=== PATIENT | female | born 1970 | race Caucasian/White ===

== ENCOUNTER → 2017-04-19 | Outpatient (CLI) | payer OTHER, SELFPAY ==
[2017-04-19 17:50] LABS: ALBUMIN 3.4 GM/DL (3.2-5.2); ALBUMIN/GLOBULIN RATIO 1.03 (1.00-1.93); ALKALINE PHOSPHATASE 101 U/L (45-117); ALT/SGPT 31 U/L (12-78); ANION GAP 8 MEQ/L (8-16); AST/SGOT 27 U/L (15-37); BILIRUBIN,TOTAL 0.6 MG/DL (0.2-1.0); BLOOD UREA NITROGEN 9 MG/DL (7-18); CALCIUM LEVEL 8.9 MG/DL (8.5-10.1); CARBON DIOXIDE LEVEL 37 MEQ/L (21-32); CHLORIDE LEVEL 96 MEQ/L (98-107); CREATININE FOR GFR 0.84 MG/DL (0.55-1.02); GLOMERULAR FILTRATION RATE > 60.0 (>58); GLUCOSE, FASTING 133 MG/DL (70-105); POTASSIUM SERUM 2.7 MEQ/L (3.5-5.1); SODIUM LEVEL 141 MEQ/L (136-145); TOTAL PROTEIN 6.7 GM/DL (6.4-8.2)
== END ==
LOC: M LAB 16:13
PROVIDERS: ATTEND Internal Medicine Hematology & Oncology
DX: C50.211 Malignant neoplasm of upper-inner quadrant of right female breast (principal)

== ENCOUNTER 2017-08-01 14:15 | Emergency (ER) | payer OTHER ==
[~2017-08-01] VITALS: Ht 170.2 cm; Wt 94.5 kg
[2017-08-01] MEDS ORDERED: LETR2.5T2 PO (14:26)
[2017-08-01] MEDS ORDERED: FIOR1CAP PO (14:26)
[2017-08-01] MEDS ORDERED: DICL500C PO (14:26)
[2017-08-01] MEDS ORDERED: GABA-283 PO (14:26)
[2017-08-01] MEDS ORDERED: PERC7.5T11 PO (14:26)
[2017-08-01] MEDS ORDERED: NS 1,000 ML IV ONE ×2 (15:45→18:30)
[2017-08-01 17:10] LABS: BASO % 0.6 % (0.0-1.0); EOS # 0.4 10^3/uL (0.0-0.50); IMMATURE GRANULOCYTE % 0.2 % (0-0); LYMPH # 2.5 10^3/uL (1.5-4.5); LYMPH % 47.2 % (24.0-44.0); MEAN CORPUSCULAR HEMOGLOBIN 29.9 pg (27.0-33.0); MEAN CORPUSCULAR HGB CONC 31.8 g/dl (32.0-36.5); MONO # 0.3 10^3/uL (0.0-0.8); MONO % 6.4 % (0.0-5.0); NEUTROPHILS # 2.1 10^3/uL (1.8-7.7); NEUTROPHILS % 38.6 % (36.0-66.0); PLATELET COUNT, AUTOMATED 367 10^3/uL (150-450); RED CELL DISTRIBUTION WIDTH 13.8 % (11.5-14.5); WHITE BLOOD COUNT 5.3 10^3/uL (4.0-10.0)
[2017-08-01 17:34] LABS: ALBUMIN 3.5 GM/DL (3.2-5.2); ALKALINE PHOSPHATASE 114 U/L (45-117); ALT/SGPT 16 U/L (12-78); ANION GAP 3 MEQ/L (8-16); AST/SGOT 13 U/L (7-37); BILIRUBIN,TOTAL 0.1 MG/DL (0.2-1.0); BLOOD UREA NITROGEN 10 MG/DL (7-18); CALCIUM LEVEL 8.9 MG/DL (8.5-10.1); CARBON DIOXIDE LEVEL 33 MEQ/L (21-32); CHLORIDE LEVEL 104 MEQ/L (98-107); CREATININE FOR GFR 0.86 MG/DL (0.55-1.02); GLOMERULAR FILTRATION RATE > 60.0 (>58); GLUCOSE, FASTING 88 MG/DL (70-105); POTASSIUM SERUM 4.5 MEQ/L (3.5-5.1); SODIUM LEVEL 140 MEQ/L (136-145); TOTAL PROTEIN 7.4 GM/DL (6.4-8.2)
[2017-08-01 21:20] VITALS: BP 136/77
[2017-08-01] MEDS ORDERED: ONDANSETRON 4MG/2ML VIAL (J2405) IV ONE (22:00)
[2017-08-01] MEDS ORDERED: ONDANSETRON 4MG/2ML VIAL (J2405) As Ordered ONE (22:15)
--- NOTE | 2017-08-02 13:47 | ECGEPIP ---
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
== END 2017-08-01 22:36 | disposition home or self-care (01) ==
LOC: M ED 14:15
DX: C50.919 Malignant neoplasm of unspecified site of unspecified female breast (principal); T45.1X5A Adverse effect of antineoplastic and immunosuppressive drugs, initial encounter; D64.9 Anemia, unspecified; I45.2 Bifascicular block; Z98.84 Bariatric surgery status; Z79.899 Other long term (current) drug therapy; Z88.6 Allergy status to analgesic agent; Z88.5 Allergy status to narcotic agent
CPT/HCPCS: 80053; 82550; 82553; 83735; 84443; 85025; 93000; 96361; 96374; 99285; J2405

== ENCOUNTER → 2018-02-28 | Outpatient (CLI) | payer OTHER | LOC: M LRY 17:18 | DX: M79.672 Pain in left foot (principal); M77.32 Calcaneal spur, left foot; M19.072 Primary osteoarthritis, left ankle and foot | CPT/HCPCS: 73630 ==

== ENCOUNTER → 2018-08-15 | Outpatient (REF) | payer OTHER ==
[2018-08-15 13:38] LABS: HEMATOCRIT 39.2 % (36.0-47.0); HEMOGLOBIN 12.9 g/dl (12.0-15.5); MEAN CORPUSCULAR HEMOGLOBIN 30.7 pg (27.0-33.0); MEAN CORPUSCULAR HGB CONC 32.9 g/dl (32.0-36.5); MEAN CORPUSCULAR VOLUME 93.3 fl (80.0-96.0); PLATELET COUNT, AUTOMATED 280 10^3/uL (150-450); RED CELL DISTRIBUTION WIDTH 13.7 % (11.5-14.5); WHITE BLOOD COUNT 5.3 10^3/uL (4.0-10.0)
[2018-08-15 14:58] LABS: ALBUMIN 3.8 GM/DL (3.2-5.2); ALBUMIN/GLOBULIN RATIO 1.06 (1.00-1.93); ALKALINE PHOSPHATASE 155 U/L (45-117); ALT/SGPT 29 U/L (12-78); ANION GAP 10 MEQ/L (8-16); AST/SGOT 22 U/L (7-37); BILIRUBIN,TOTAL 0.3 MG/DL (0.2-1.0); BLOOD UREA NITROGEN 12 MG/DL (7-18); CALCIUM LEVEL 8.9 MG/DL (8.5-10.1); CARBON DIOXIDE LEVEL 28 MEQ/L (21-32); CHLORIDE LEVEL 103 MEQ/L (98-107); GLOMERULAR FILTRATION RATE 56.9 (>58); GLUCOSE, FASTING 92 MG/DL (70-100); IRON (FE) 46 UG/DL (50-170); PERCENT SATURATION 10.1 % (13.2-45.0); SODIUM LEVEL 141 MEQ/L (136-145); TOTAL 25(OH) VITAMIN D 28.6 NG/ML (30.0-100.0); TOTAL IRON BINDING CAPACITY 457 UG/DL (250-450); TOTAL PROTEIN 7.4 GM/DL (6.4-8.2); VITAMIN B12 LEVEL 421 PG/ML (247-911)
[2018-08-15 16:01] LABS: ESTIMATED AVERAGE GLUCOSE 131 MG/DL (60-110); HEMOGLOBIN A1c 6.2 %
== END ==
LOC: M SFHCPLAZ 10:42
DX: Z00.00 Encounter for general adult medical examination without abnormal findings (principal); Z98.84 Bariatric surgery status; Z83.3 Family history of diabetes mellitus

== ENCOUNTER → 2018-09-12 | Outpatient (CLI) | payer OTHER ==
[~2018-09-12] MED LIST: DICL500C PO; FIOR1CAP PO; GABA-845 PO; LETR2.5T2 PO; PERC7.5T11 PO
--- NOTE | 2018-09-12 10:41 | REP ---
Clinical: Adenopathy. Technique: Real time kingston scale and color evaluation using linear high frequency transducer. Findings: Directed ultrasound examination along the left side of the neck at the site of palpable mass demonstrates a small relatively normal appearing lymph nodes measuring up to 4 x 3 x 4 mm. No abnormal fluid collection, mass lesion, or pathologic lymph nodes identified. Impression: Small relatively normal appearing lymph nodes at the site of palpable mass. Electronically Signed by Cole Sanford MD 09/12/2018 10:33 A
== END ==
LOC: M RAD 09:39
PROVIDERS: ATTEND Nurse Practitioner Adult Health
DX: R59.9 Enlarged lymph nodes, unspecified (principal)

== ENCOUNTER → 2018-12-19 | Outpatient (CLI) | payer OTHER ==
[2018-12-19 18:18] LABS: ALBUMIN 4.2 GM/DL (3.2-5.2); BILIRUBIN,TOTAL 0.3 MG/DL (0.2-1.0); CALCIUM LEVEL 8.9 MG/DL (8.5-10.1); CREATININE FOR GFR 1.19 MG/DL (0.55-1.30); FREE T4 0.86 NG/DL (0.76-1.46); MAGNESIUM LEVEL 2.1 MG/DL (1.8-2.4); POTASSIUM SERUM 3.8 MEQ/L (3.5-5.1); THYROID STIMULATING HORMONE 1.84 uIU/ML (0.358-3.740); TOTAL PROTEIN 7.7 GM/DL (6.4-8.2)
== END ==
LOC: M LAB 17:12
PROVIDERS: ATTEND Physician Assistant
DX: K91.1 Postgastric surgery syndromes (principal); E03.9 Hypothyroidism, unspecified

== ENCOUNTER → 2019-01-22 | Outpatient (CLI) | payer OTHER ==
--- NOTE | 2019-01-22 23:03 | ECHO ---
DATE OF PROCEDURE: 01/22/2019 AGE: 48 GENDER: Female HEIGHT: 67 inches WEIGHT: 220 pounds BODY SURFACE AREA: 2.11 m2 PATIENT LOCATION: Outpatient. REFERRING PHYSICIAN: Maddi Dover NP INDICATION: History of malignant neoplasm of the breast. 2-D MEASUREMENTS: RV: 3.4 cm LV: 4.2 cm Septum: 1.2 cm Posterior wall: 1.2 cm Aortic root: 2.7 cm LA: 3.9 cm LVEF: 65% DOPPLER MEASUREMENTS: AV: 1.0 m/s LVOT: 0.8 m/s LVOT diameter: 2.0 cm MV-E: 63, A: 76, EA ratio: 0.8 Early mitral deceleration time: 194 ms E prime: 6, A prime: 12, E/E prime ratio: 10.5 PCWP: 12.4 mmHg PV: 75 m/s Pulmonary artery acceleration time: 120 ms PASP: 29 mmHg COMMENTS: Normal sinus rhythm without intraventricular conduction disturbance. Technically challenging study in light of the patient's body habitus, but diagnostically useful information was still obtained. M-mode and two-dimensional echocardiography was performed with pulsed, continuous wave, color flow and tissue Doppler studies. Borderline concentric left ventricle hypertrophy with normal wall motion. Borderline left atrial enlargement with Doppler evidence of impairment of LV diastolic function and current estimated mean left atrial pressure upper limits of normal. Normal right heart chamber sizes and motion with pulmonary arterial pressure upper limits of normal. IVC could not be visualized to further define central venous pressure. Normal appearing and functioning valvular structures. No apparent intracardiac mass or pericardial effusion.
== END ==
LOC: M CARPUL 13:52
PROVIDERS: ATTEND Nurse Practitioner Adult Health
DX: R07.89 Other chest pain (principal); Z85.3 Personal history of malignant neoplasm of breast

== ENCOUNTER 2019-06-23 19:51 | Emergency (ER) | payer OTHER ==
[~2019-06-23] VITALS: Ht 167.6 cm; Wt 105.0 kg
[2019-06-23 22:03] LABS: BASO % 0.5 % (0.0-1.0); EOS # 0.2 10^3/uL (0.0-0.5); LYMPH # 1.9 10^3/uL (1.5-5.0); LYMPH % 24.3 % (24.0-44.0); MEAN CORPUSCULAR HGB CONC 32.4 g/dl (32.0-36.5); MEAN CORPUSCULAR VOLUME 98.7 fl (80.0-96.0); MONO # 0.7 10^3/uL (0.0-0.8); MONO % 8.2 % (0.0-5.0); NEUTROPHILS # 5.1 10^3/uL (1.5-8.5); NEUTROPHILS % 64.6 % (36.0-66.0); PLATELET COUNT, AUTOMATED 357 10^3/uL (150-450); RED BLOOD COUNT 3.75 10^6/uL (4.00-5.40); WHITE BLOOD COUNT 7.9 10^3/uL (4.0-10.0)
--- NOTE | 2019-06-23 22:28 | REPVR ---
PROCEDURE INFORMATION: Exam: US Right Breast Limited Exam date and time: 06/23/2019 9:29 PM Clinical history: 49 years old, female; Other: Redness, warm; Breast pain; Right; Prior surgery; Surgery date: <1 month; Surgery type: Reconstructive; Patient HX: Breast CA; Additional info: S/P breast surgery with pain, redness, swelling eval abscess TECHNIQUE: Imaging protocol: Limited ultrasound of Right breast with image documentation, including axilla when performed. COMPARISON: No relevant prior studies available. FINDINGS: Scanning of the right breast demonstrates no fluid collections and no abscess. IMPRESSION: No fluid collection or abscess is identified in the right breast. Electronically signed by: Winston Ulrich On 06/23/2019 22:27:12 PM
[2019-06-23 22:34] LABS: CALCIUM LEVEL 9.4 MG/DL (8.5-10.1); CREATININE FOR GFR 1.25 MG/DL (0.55-1.30); GLOMERULAR FILTRATION RATE 48.9 (>58); POTASSIUM SERUM 3.9 MEQ/L (3.5-5.1)
[2019-06-23 23:06] VITALS: BP 125/88
== END 2019-06-23 23:07 | disposition home or self-care (01) ==
LOC: M ED 19:51
DX: T81.40XA Infection following a procedure, unspecified, initial encounter (principal); L03.313 Cellulitis of chest wall; Z90.13 Acquired absence of bilateral breasts and nipples; Z85.3 Personal history of malignant neoplasm of breast; Z88.5 Allergy status to narcotic agent; Z79.899 Other long term (current) drug therapy

== ENCOUNTER 2019-09-28 12:10 | Inpatient (IN) | payer OTHER ==
[~2019-09-28] VITALS: Ht 167.6 cm; Wt 105.0 kg
[2019-09-28] MEDS ORDERED: BUTA-198 PO (12:32)
[2019-09-28] MEDS ORDERED: ZOLP5TAB PO (12:32)
[2019-09-28] MEDS ORDERED: ANAS1TAB2 PO (12:32)
[2019-09-28] MEDS ORDERED: BUPR150T3 (12:32)
[2019-09-28] MEDS ORDERED: LORA-753 PO (12:32)
[2019-09-28] MEDS ORDERED: CYCLOBENZAPRINE 10 MG TAB PO ONE (12:45)
[2019-09-28] MEDS ORDERED: BELV10TA PO (13:01)
[2019-09-28] MEDS ORDERED: ISOVUE-370 76% 100ML VIAL (Q9967) As Ordered ONE (13:04)
[2019-09-28] MEDS ORDERED: KETOROLAC 30 MG/ML VIAL (J1885) IV ONE (13:45)
--- NOTE | 2019-09-28 13:48 | REP ---
LEFT RIB SERIES: Four views of the left ribs performed. No fracture or bone lesion is seen. An accompanying view of the chest demonstrates poor inspiration. There are linear atelectatic changes in each lung base. Cardiomediastinal silhouette appears somewhat magnified. IMPRESSION: No evidence of left rib fracture. Electronically Signed by Jack Acuna MD 09/29/2019 05:49 P
[2019-09-28 14:06] LABS: BASO % 0.3 % (0.0-1.0); EOS # 0.2 10^3/uL (0.0-0.5); EOS % 1.8 % (0.0-3.0); HEMOGLOBIN 12.6 g/dl (12.0-15.5); LYMPH # 1.4 10^3/uL (1.5-5.0); LYMPH % 15.4 % (24.0-44.0); MEAN CORPUSCULAR HGB CONC 33.2 g/dl (32.0-36.5); MEAN CORPUSCULAR VOLUME 93.6 fl (80.0-96.0); MONO # 0.5 10^3/uL (0.0-0.8); MONO % 5.8 % (0.0-5.0); NEUTROPHILS # 7.1 10^3/uL (1.5-8.5); NEUTROPHILS % 76.4 % (36.0-66.0); PLATELET COUNT, AUTOMATED 273 10^3/uL (150-450); RED BLOOD COUNT 4.06 10^6/uL (4.00-5.40); WHITE BLOOD COUNT 9.3 10^3/uL (4.0-10.0)
--- NOTE | 2019-09-28 14:27 | REP ---
LUMBOSACRAL SPINE SERIES: Five views of the lumbosacral spine are performed. No compression fracture is seen. There is no spondylolysis or spondylolisthesis with normal lumbar lordosis. There is mild diffuse spurring. There is mild disc space narrowing at virtually all levels. There is sclerosis and spurring at the posterior facets of L5-S1. Posterior elements are intact. There is mild curvature toward the left. IMPRESSION: Degenerative changes as above. No acute fracture or dislocation. Electronically Signed by Jack Acuna MD 09/29/2019 05:52 P
--- NOTE | 2019-09-28 14:35 | REP ---
CT CHEST WITH IV CONTRAST: TECHNIQUE: Axial contrast enhanced images from the thoracic inlet to the upper abdomen using 100 mL Isovue 370 intravenous contrast material with multiplanar reformations. The lungs show mild bilateral atelectatic changes. There is no pneumothorax. There are bilateral breast implants which appear intact. I see no mediastinal, hilar, or chest wall lymphadenopathy. There is no pleural or pericardial effusion. Heart is normal in size. Thoracic aorta is normal in caliber with no aneurysm or dissection. There is diffuse fatty infiltration of the liver. Patient has had a prior cholecystectomy. There also appears to have been prior gastric bypass surgery. There are degenerative changes of the spine. There do appear to be nondisplaced fractures of the anterolateral left 6th and 7th ribs. IMPRESSION: Nondisplaced fractures anterolateral left 6th and 7th ribs. No pneumothorax or pleural effusion. Bilateral breast implants appear intact. There are bilateral atelectatic changes in the lungs. Electronically Signed by Jack Acuna MD 09/29/2019 05:52 P
--- NOTE | 2019-09-28 14:45 | REP ---
CT ABDOMEN AND PELVIS WITH IV CONTRAST: TECHNIQUE: Axial contrast enhanced images from the lung bases to the pubic symphysis using 100 mL Isovue 370 intravenous contrast material with multiplanar reformations. There is diffuse fatty infiltration of the liver. The patient has had a prior cholecystectomy. The spleen is normal in size and intact with no laceration. Adrenals and pancreas are normal. Kidneys are normal in appearance. There is no abdominal aortic aneurysm. There is no adenopathy. There is no free air or free fluid. No bowel wall thickening is seen. Patient has had a prior gastric bypass surgery. No pelvic mass is seen. Urinary bladder is mildly distended and grossly unremarkable. There are degenerative changes of the spine. Nondisplaced fractures are noted of the left 6th, 7th, 8th, 9th, and 10th ribs with mildly displaced fracture of the posterior left 12th rib. IMPRESSION: Nondisplaced fractures left 6th-10th ribs with mildly displaced fracture left 12th rib. No acute intra-abdominal or pelvic abnormality. Electronically Signed by Jack Acuna MD 09/29/2019 05:52 P
[2019-09-28] MEDS ORDERED: MIRALAX *UNIT DOSE* 17GM PACKET PO PRN (15:15)
[2019-09-28] MEDS ORDERED: ONDANSETRON 4MG/2ML VIAL (J2405) IV PRN (15:15)
[2019-09-28] MEDS ORDERED: traMADol 50 MG TAB PO PRN (15:15)
[2019-09-28] MEDS ORDERED: SENOKOT S TAB PO PRN (15:15)
[2019-09-28] MEDS ORDERED: MOM 30ML SUSPENSION UDC PO PRN (15:15)
[2019-09-28] MEDS ORDERED: LUPRON INJECTION (15:33)
[2019-09-28] MEDS ORDERED: ACET-683 PO (15:33)
[2019-09-28] MEDS ORDERED: FIORICET TAB PO PRN (16:00)
[2019-09-28] MEDS: traMADol 50 MG TAB PO PRN ×2 (16:14→22:15)
[2019-09-28 16:40] VITALS: BP 153/91
[2019-09-28] MEDS: ACETAMINOPHEN 500 MG TAB PO SCH ×2 (18:03→20:20)
[2019-09-28] MEDS: NS 1,000 ML IV SCH (18:04)
--- NOTE | 2019-09-28 19:42 | HPE ---
DATE OF ADMISSION: 09/28/2019 PRIMARY CARE PROVIDER: Antony Berry, [facility] CHIEF COMPLAINT: Fall. HISTORY OF PRESENT ILLNESS: 49-year-old female with a history of stage II B infiltrating ductal carcinoma of the right breast, followed by Dr. Yuli Gallo at the [facility] in [place], diagnosed 12/06/2016 with recent bilateral breast reconstructive surgery on 06/02/2019. She was in her usual state of health until this morning when she slipped in the shower. The patient continues to have scarring under the right breast and was putting some oil on the scars when she slipped on the bathroom floor and landed on her left side, hitting the small shower chair in the bathroom. She had no head trauma, loss of consciousness, dizziness, lightheadedness prior to the episode. She did not have any loss of consciousness. The patient denied any palpitations, lightheadedness, dizziness, chest pain, pressure, tightness, shortness of breath prior to the episode and has been well. Denies any upper respiratory infection, fever, chills, cough, shortness of breath, nausea, vomiting, epigastric pain, diarrhea, dysuria, urgency, frequency, upper or lower extremity weakness. No recent weight gain or weight loss. Denies any changes in appetite, rhinorrhea, ear discharge, diplopia, changes in vision, sore throat. 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 She usually takes nonsteroidal antiinflammatory drugs as needed. She otherwise denies her knees buckling today. She has no back pain. She otherwise denies any current depression, but has had a history of anxiety in the past. In the emergency room, she was found to have multiple rib fractures on the left from the 6th to the 10th rib and mildly displaced fracture of the left 12th rib. CT of the chest shows no pneumothorax. The patient had some relief with Flexeril 10 mg. She states that she has allergies to HYDROCODONE and OXYCODONE causing itching and then rash, but was given them after being given Benadryl during her mastectomy in 2017. The patient's pain is 10 out of 10 at the moment. She has some pleuritic chest pain. The hospitalist was asked to admit for intractable pain secondary to multiple rib fractures from 6th to 10th rib and mildly displaced fracture of the left 12th rib, status post fall in the shower today. PAST MEDICAL HISTORY: 1. Stage II B infiltrating ductal carcinoma of the right breast, followed by Dr. Yuli Gallo at the [facility]. 2. Bilateral mastectomies with implants on December 06, 2016. 3. Gastric bypass surgery, was previously 304 pounds at the time of surgery in 2004. 4. Right lymph node resection in 2016. 5. Left heel spur. 6. Dumping syndrome. 7. Migraine headaches. 8. Insomnia. 9. Anxiety. 10. Kidney stone history. 11. Left heel spur. 12. Subclinical hypothyroidism. 13. Seasonal allergies. 14. Gastroesophageal reflux disease (GERD). ALLERGIES: OXYCODONE causes nausea and itching, headache. HYDROCODONE causing rash. PAST SURGICAL HISTORY: 1. Bilateral mastectomy in June 2017. 2. Gastric bypass surgery in 2004. 3. Lymph node resection in 2016. 4. Reconstructive breast surgery in 2017. 5. Abdominoplasty, upper and lower, in 2005. 6. Cholecystectomy at age 17. 7. section times one. 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 Graduated from high school and [employer] ([employer]) in cosmetology. Has one daughter, Rosalba. No alcohol use. Nonsmoker. No recreational drug use. FAMILY HISTORY: Father alive but she does not speak to him. Mother alive at age 68 with hypertension, hyperlipidemia, diabetes, hypothyroidism. REVIEW OF SYSTEMS: As per history of present illness. 12-point system otherwise negative. PHYSICAL EXAMINATION: VITAL SIGNS: Temperature 97, pulse 82, respiratory rate 22, blood pressure 164/73, 100% on room air. GENERAL: The patient is awake, alert, oriented to person, place and time. The patient has no periorbital edema, swelling, or ecchymosis. Pupils are round and reactive to light and accommodation. Extraocular muscles are intact. Normocephalic, atraumatic. Moist mucous membranes. No cervical lymphadenopathy or thyromegaly. No jugular venous distention (JVD). LUNGS: Clear to auscultation bilaterally. Air entry is equal. No wheezing, rales or rhonchi. The patient has no hematoma to the bilateral breasts. Well healed scars noted under bilateral breasts from prior mastectomy and reconstructive surgery. No hematoma. She does have some bruising underneath the left breast and mid axillary area. No Brown-Duran's sign. ABDOMEN: Soft, nontender, nondistended. Positive bowel sounds. Obese abdomen. EXTREMITIES: No cyanosis, clubbing, or any pitting edema. Bilateral knees with full range of motion. LABORATORY DATA: White count 9.3, hemoglobin 12, hematocrit 38, platelet count 273, 76% neutrophils. Metabolic panel: Sodium 139, potassium 4.1, chloride 101, bicarbonate 28, BUN 9, creatinine 1, glucose 136. Urinalysis negative for glucose, ketones, blood, nitrite, bilirubin. Negative leukocyte esterase, 2 WBC, negative bacteria, yellow, clear appearance, pH of 7.0, specific gravity 1.032. IMAGING STUDIES: Chest CT showed no pneumothorax. Nondisplaced fractures of the anterolateral left 6th and 7th ribs, no pleural effusion, bilateral breast implants intact. Bilateral atelectasis in the lungs. CT of the abdomen and pelvis showed nondisplaced fracture of left 6th to 10th ribs and mildly displaced fracture of left 12th rib, no acute intraabdominal or pelvic pathology. Cholecystectomy, fatty infiltration of the liver. Spleen is normal size and intact with no laceration. Adrenals and pancreas are normal. Kidneys are normal. No abdominal aortic aneurysm. No adenopathy. No free air or fluid. Prior gastric bypass surgery. Lumbar spine x-ray showed degenerative changes of L5-S1, no acute fracture or dislocation. Mild space narrowing. ASSESSMENT AND PLAN: This is a 49-year-old female status post bilateral mastectomy with stage II B infiltrating ductal carcinoma of the right breast in November 2016 with bilateral mastectomy and implants and reconstructive surgery in May 2019. She presents after a fall at home with left 6th to 10th nondisplaced fractures and a left mildly displaced 12th rib fracture, admitted for pain control. IMPRESSION: 1. Fall with multiple rib fractures. The patient had no prodromal symptoms and does not require telemetry. She states that she slipped in the bathroom after putting oil on the scars underneath her right breast. The patient then subsequently hit the side in the bathroom where she has a very small shower chair. There are no open lacerations noted. No significant hematoma. CT of the chest, abdomen and pelvis shows no other injuries aside from the nondisplaced fracture of the left 6th to 10th ribs, as well as mildly displaced fracture of the left 12th rib with no pneumothorax noted. She will be admitted for pain control. The patient has had reactions to hydrocodone and oxycodone with a rash, itching and nausea in the past and therefore she will be given intravenous Toradol with IV fluids to decrease risk of renal failure, Tylenol every 8 hours, heating pad if needed, incentive spirometry to prevent atelectasis and physical therapy (PT). Home safety evaluation. Pain management will be consulted in the morning. 2. Deep vein thrombosis (DVT) prophylaxis with compression stockings. 3. History of stage II B infiltrating ductal carcinoma of the right breast, status post bilateral mastectomy with implant and reconstructive surgery in May 2019. CT of the chest shows no hematoma and physical examination shows no laceration or hematoma noted. No need for plastic surgeon or breast reconstructive surgeon to be consulted at this time. We will monitor overnight. The patient is concerned about missing her Lupron injection monthly. Due to weather changes she had to postpone her Lupron injection for . She is concerned that she might miss this and is requesting for Lupron injection to be given here at [facility]. We will touch base with the patient's medical oncologist, Dr. Yuli Gallo, at the [facility] for recommendations. 4. History of gastric bypass surgery with dumping syndrome. Currently with a Body Mass Index (BMI) of 37.2. We will check lipid panel in the morning and A1/c, fasting glucose to rule out metabolic syndrome. 5. History of migraines. On as needed Fioricet. Currently denies any headaches at this moment. No head trauma status post her fall. 6. Seasonal allergies. She may be continued on her home medications. 7. Reflux. Continue on proton pump inhibitor if needed. 8. History of insomnia. On Ambien at night as needed. 9. History of kidney stones. Currently not complaining of any dysuria, urgency, frequency or gross hematuria. DISPOSITION: Pending pain control and physical therapy (PT) clearance for discharge home. [facility]
[2019-09-28] MEDS: KETOROLAC 30 MG/ML VIAL (J1885) IV SCH (20:21)
[2019-09-28] MEDS: LORATADINE 10 MG TAB PO SCH (20:21)
[2019-09-28 22:00] VITALS: BP 146/86
[2019-09-28] MEDS: CYCLOBENZAPRINE 10 MG TAB PO SCH (22:15)
[2019-09-29] MEDS: zolPIDEM TARTRATE 5 MG TAB PO PRN ×2 (01:36→22:01)
[2019-09-29] MEDS: KETOROLAC 30 MG/ML VIAL (J1885) IV SCH ×4 (01:37→20:31)
[2019-09-29] MEDS: CYCLOBENZAPRINE 10 MG TAB PO SCH ×3 (05:33→22:01)
[2019-09-29] MEDS: NS 1,000 ML IV SCH ×3 (05:34→22:01)
[2019-09-29 06:00] VITALS: BP 134/82
[2019-09-29 06:25] LABS: HEMATOCRIT 35.9 % (36.0-47.0); HEMOGLOBIN 11.9 g/dl (12.0-15.5); MEAN CORPUSCULAR HEMOGLOBIN 31.6 pg (27.0-33.0); MEAN CORPUSCULAR HGB CONC 33.1 g/dl (32.0-36.5); MEAN CORPUSCULAR VOLUME 95.2 fl (80.0-96.0); PLATELET COUNT, AUTOMATED 239 10^3/uL (150-450); RED BLOOD COUNT 3.77 10^6/uL (4.00-5.40)
[2019-09-29 06:57] LABS: BLOOD UREA NITROGEN 12 MG/DL (7-18); CALCIUM LEVEL 8.6 MG/DL (8.5-10.1); CARBON DIOXIDE LEVEL 28 MEQ/L (21-32); CHLORIDE LEVEL 107 MEQ/L (98-107); CHOLESTEROL LEVEL 243 MG/DL (<200); CHOLESTEROL RISK RATIO 5.651 (<5); CREATININE FOR GFR 0.94 MG/DL (0.55-1.30); FREE THYROXINE INDEX 2.6 % (1.3-4.8); GLOMERULAR FILTRATION RATE > 60.0 (>58); GLUCOSE, FASTING 115 MG/DL (70-100); HDL CHOLESTEROL 43 MG/DL (>40); LDL CHOLESTEROL 165 MG/DL (<100); NON-HDL-C 200 MG/DL; POTASSIUM SERUM 4.1 MEQ/L (3.5-5.1); SODIUM LEVEL 141 MEQ/L (136-145); T UPTAKE 35 % (30-39); THYROXINE (T4) 7.3 UG/DL (4.5-12.0); TRIGLYCERIDES LEVEL 175 MG/DL (<150)
[2019-09-29 07:15] LABS: HEMOGLOBIN A1c 7.5 %
--- NOTE | 2019-09-29 07:16 | REP ---
RIGHT KNEE, AP AND LATERAL: AP and lateral views of the right knee are performed. No acute fracture or dislocation is seen. There is a small joint effusion. Joint spaces appear unremarkable. Electronically Signed by Jack Acuna MD 09/29/2019 05:55 P
[2019-09-29] MEDS ORDERED: TRAM50TA2 PO (07:47)
[2019-09-29] MEDS ORDERED: CYCL10TA PO (07:47)
[2019-09-29] MEDS: traMADol 50 MG TAB PO PRN (08:04)
[2019-09-29] MEDS ORDERED: INFLUENZA QUADRIVALENT PF VACCINE 0.5ML SYRINGE (90686) IM ONE (09:00)
[2019-09-29] MEDS: ACETAMINOPHEN 500 MG TAB PO SCH ×3 (10:12→20:32)
[2019-09-29 14:00] VITALS: BP 140/79
[2019-09-29 20:14] VITALS: BP 141/70
[2019-09-29] MEDS: LORATADINE 10 MG TAB PO SCH (20:32)
[2019-09-29] MEDS ORDERED: BELVIQ PO SCH (21:00)
--- NOTE | 2019-09-29 22:01 | IPNPDOC ---
Date Seen The patient was seen on 09/29/19. Progress Note SUBJECTIVE: Halle was seen and examined this morning while lying upright in bed. She reports her pain at rest is 2/10 and increases to 5/10 on ambulation, and she feels as though her pain is currently well controlled She was able to ambulate with physical therapy this morning under her own power. She denies feeling lightheaded, getting dizzy, or associated weakness with ambulation. Patient con tinues to have moderate pleuritic chest pain, that is more pronounced with inspiration. Patient denies fever, chills, night sweats, chest pain, palpitations, dyspnea, OBJECTIVE PHYSICAL EXAMINATION: VITAL SIGNS: Please see below. GENERAL: Pleasant female who appears to be in mild discomfort secondary to left flank rib pain. Appears stated age. Well-developed, well- nourished. HEENT: Normocephalic, atraumatic. Anicteric sclera. PERRLA, EOMI., pink, moist membranes. Trachea is midline. No JVD. CARDIOVASCULAR: Regular rate and rhythm. Normal S1, S2. No murmurs, rubs, or clicks. RESPIRATORY: Mild crackles of the left lung base. Symmetric chest expansion with adequate tidal volume. No wheezing or rhonchi appreciated. ABDOMINAL: Obese, soft, nontender, nondistended. Bowel sounds present throughout. No guarding or rigidity. EXTREMITIES: No lower extremity edema, clubbing or cyanosis bilaterally. 2+ radial and posterior tibial pulses bilaterally NEUROLOGICAL: No focal neurological deficits appreciated. PSYCHOLOGICAL: Mood and affect appear appropriate. LABORATORY DATA, IMAGING STUDIES, MICROBIOLOGY: Please see below. ASSESSMENT AND PLAN: This is a 49-year-old female with history of stage IIB infiltrating ductal carcinoma of the right breast.. She follows at [facility] in [place] with Dr. Yuli Gallo. Breast cancer was diagnosed in 2016 and she underwent reconstructive bilateral breast surgery in January 2019. She was at her baseline as far as health status when she had a fall while showering on 09/28. She had no head trauma and denied loss of consciousness, dizziness or lightheadedness. She fell onto her left flank and subsequent imaging showed nondisplaced fractures of the left ribs, 6-10, with a displaced fracture of the left 12th rib. CT showed no evidence of pneumothorax. #Multiple left rib fractures status post fall -Imaging shows nondisplaced fractures of the left ribs 6 through 10 and displaced fracture of the left 12th rib; no pneumothorax visualized. -Patient states her pain is well controlled currently on the regimen of Toradol for breakthrough pain, Tylenol, tramadol, and Flexeril. -Plan is to discontinue IV medications tomorrow in preparation of discharge by Sunday at the latest. -Plan to consult pain management regarding possible options for outpatient pain medications. Patient has documented allergies to opioid medications. -Extensively spoke with the patient about the importance of continued ambulation, both with nursing and physical therapy. #History of stage IIB infiltrating ductal carcinoma of right breast, s/p bilateral mastectomy with implant reconstructive surgery in May 2019 -Patient receives monthly Lupron injections with her oncologist in [place] (Dr. Yuli Gallo), [facility] -Hospitalist team spoke with Dr. Gallo this morning. As patient's next appointment for Lupron injections is this Sunday (10/01). Dr. Gallo is fine with patient pushing appointment back to Sunday of this week (10/03). -Patient, or patient's family, will need to personally call oncology office in [place] to verbally agree to push back appointment to 10/03 #History of nephrolithiasis -No current complaints of urinary urgency, frequency issue area or hematuria #Seasonal allergies -c/w home medications #DVT prophylaxis: Compression stockings DISPOSITION: Discharge likely within next 2 days. VS, I&O, 24H, [place] Vital Signs/I&O Vital Signs Date Time Temp Pulse Resp B/P (MAP) Pulse Ox O2 Delivery O2 Flow Rate FiO2 09/29/19 20:14 97.9 83 17 141/70 (93) 95 Room Air I&O- Last 24 Hours up to 6 AM 09/29/19 06:00 Intake Total 420 ml Balance 420 ml Laboratory Data 24H LABS Laboratory Tests 2 09/29/19 06:09: Nucleated Red Blood Cells % (auto) 0.0 09/29/19 06:10: Anion Gap 6L, Glomerular Filtration Rate > 60.0, Estimated Mean Plasma Glucose 169H, Hemoglobin A1c 7.5, Calcium Level 8.6, Triglycerides Level 175H, Total Cholesterol 243H, LDL Cholesterol 165H, Non-HDL Cholesterol (LDL + VLDL) 200, Total HDL Cholesterol 43, Cholesterol/HDL Ratio 5.651H, Thyroid Stimulating Hormone (TSH) 6.460H, Free Thyroxine Index 2.6, Thyroxine (T4) 7.3, Triiodothyronine (T3) Uptake 35 CBC/BMP Laboratory Tests 09/29/19 06:09 09/29/19 06:10 RAVEN BOOKER D.O. Sep 29, 2019 22:01
[2019-09-30] MEDS ORDERED: UNRESOLVED PATIENT OWN MED ORDER XX SCH (00:01)
[2019-09-30] MEDS: KETOROLAC 30 MG/ML VIAL (J1885) IV SCH ×2 (02:09→07:39)
[2019-09-30 04:27] VITALS: BP 127/79
[2019-09-30] MEDS: traMADol 50 MG TAB PO PRN (04:31)
[2019-09-30] MEDS: CYCLOBENZAPRINE 10 MG TAB PO SCH ×2 (06:34→14:40)
[2019-09-30] MEDS: NS 1,000 ML IV SCH (07:39)
[2019-09-30] MEDS: ACETAMINOPHEN 500 MG TAB PO SCH (08:36)
[2019-09-30] MEDS ORDERED: TRAM50TA2 PO (11:08)
[2019-09-30] MEDS ORDERED: KETO10TAB PO (13:07)
--- NOTE | 2019-09-30 14:47 | DS.PDOC ---
Discharge Summary General Date of Admission Sep 28, 2019 at 15:01 Date of Discharge 09/30/19 Discharge Summary CHIEF COMPLAINT: Fall. Final diagnosis Multiple left sided rib fractures status post fall History of stage IIB infiltrating ductal carcinoma of the breast History of present illness and Hospital course : This is a 49-year-old female with history of stage IIB infiltrating ductal carcinoma of the right breast.. She follows at [facility] in [place] with Dr. Yuli Gallo. Breast cancer was diagnosed in 2016 and she underwent reconstructive bilateral breast surgery in January 2019. She was at her baseline as far as health status when she had a fall while showering on 09/28. She had no head trauma and denied loss of consciousness, dizziness or lightheadedness. She fell onto her left flank and subsequent imaging showed nondisplaced fractures of the left ribs, 6-10, with a displaced fracture of the left 12th rib. CT showed no evidence of pneumothorax. Patient states her pain is well controlled currently on the regimen of Toradol for breakthrough pain, Tylenol, tramadol, and Flexeril. She was given prescriptions on a when necessary basis of these oral medications. Strongly advised to use only when needed. Extensively spoke with the patient about the importance of continued ambulation, both with nursing and physical therapy along with the importance of incentive spirometry. For her stage IIB infiltrating ductal carcinoma of right breast, s/p bilateral mastectomy with implant reconstructive surgery in May 2019. Deepali lopez receives monthly Lupron injections with her oncologist in [place] (Dr. Yuli Gallo), [facility]. Hospitalist team spoke with Dr. Gallo this morning. As patient's next appointment for Lupron injections is this Sunday (10/01). Dr. Gallo is fine with patient pushing appointment back to Sunday of this week (10/03). Advised to get it done as soon as possible. As the patient was saturating okay, breathing normally on room air and her pain is well controlled. She has been advised to continue using the spirometric and follow with her PCP. Medical benefit from this inpatient stay has been updated and the patient is optimized for discharge. PHYSICAL EXAMINATION: VITAL SIGNS: Please see below. GENERAL: Pleasant female who appears to be in mild discomfort secondary to left flank rib pain. Appears stated age. Well-developed, well- nourished. HEENT: Normocephalic, atraumatic. Anicteric sclera. PERRLA, EOMI., pink, moist membranes. Trachea is midline. No JVD. CARDIOVASCULAR: Regular rate and rhythm. Normal S1, S2. No murmurs, rubs, or clicks. RESPIRATORY: Mild crackles of the left lung base. Symmetric chest expansion with adequate tidal volume. No wheezing or rhonchi appreciated. ABDOMINAL: Obese, soft, nontender, nondistended. Bowel sounds present throughout. No guarding or rigidity. EXTREMITIES: No lower extremity edema, clubbing or cyanosis bilaterally. 2+ rad ial and posterior tibial pulses bilaterally NEUROLOGICAL: No focal neurological deficits appreciated. PSYCHOLOGICAL: Mood and affect appear appropriate. Medications. As per discharge reconciliation medication list Activity as tolerated Diet. 2 g sodium diet Follow-up appointments. PCP in 1 week Condition on discharge. Patient is medically optimized for discharge Discharge disposition: Home Total time spent on this discharge including coordination of care, review of chart documentation and actual contact is around 35 minutes Vital Signs/I&Os Vital Signs Date Time Temp Pulse Resp B/P (MAP) Pulse Ox O2 Delivery O2 Flow Rate FiO2 09/30/19 12:58 18 09/30/19 05:01 Room Air 09/30/19 04:27 97.4 66 127/79 (95) 97 I&O- Last 24 Hours up to 6 AM 09/30/19 06:00 Intake Total 3850 ml Balance 3850 ml Discharge Medications Scheduled Anastrozole (Anastrozole) 1 Mg Tablet, 1 MG PO DAILY, (Reported) Cyclobenzaprine HCl (Cyclobenzaprine HCl) 10 Mg Tablet, 10 MG PO Q8H Loratadine (Allergy Relief) 10 Mg Tablet, 10 MG PO QHS, (Reported) Lorcaserin HCl (Belviq) 10 Mg Tablet, 10 MG PO BID, (Reported) Scheduled PRN Acetaminophen (Acetaminophen) 500 Mg Tablet, 1,000 MG PO Q6H PRN for PAIN, (Reported) Butalb/Acetaminophen/Caffeine (Bzgfbq-Txqqnabo-Mkbr 50-325-40) 1 Each Tablet, 1 TAB PO Q6H PRN for MIGRAINE, (Reported) Ketorolac Tromethamine (Ketorolac Tromethamine) 10 Mg Tablet, 1 TAB PO Q12HP PRN for pain Tramadol HCl (Tramadol HCl) 50 Mg Tablet, 50 MG PO Q6HP PRN for pain Zolpidem Tartrate (Zolpidem Tartrate) 5 Mg Tablet, 5 MG PO QHS PRN for SLEEP, (Reported) Miscellaneous Medications [Lupron Injection] , (Reported) SCHEDULED TO RECEIVE SHOT IN [place] ON 10/01/2019 Allergies Coded Allergies: oxycodone (Verified Adverse Reaction, Intermediate, itching, 09/28/19) hydrocodone (Verified Adverse Reaction, Mild, NAUSEA, ITCHING, 09/28/19) NATALIE CASTANEDA MD Sep 30, 2019 14:47
== END 2019-09-30 15:25 | disposition home or self-care (01) | DRG 135 ==
LOC: M ED 12:10 → M ED INP 15:01 → ENRESERVDT 15:52 → ENRESERVTM 15:52 → M MS5PR 16:25
PROVIDERS: ADMIT General Practice; ATTEND Internal Medicine
DX: S22.42XA Multiple fractures of ribs, left side, initial encounter for closed fracture (principal); C50.911 Malignant neoplasm of unspecified site of right female breast; Z79.899 Other long term (current) drug therapy; Z88.5 Allergy status to narcotic agent; F41.9 Anxiety disorder, unspecified; G47.00 Insomnia, unspecified; G43.909 Migraine, unspecified, not intractable, without status migrainosus; K21.9 Gastro-esophageal reflux disease without esophagitis; E02 Subclinical iodine-deficiency hypothyroidism; Z87.442 Personal history of urinary calculi; Z98.84 Bariatric surgery status; Z90.11 Acquired absence of right breast and nipple; Z90.12 Acquired absence of left breast and nipple

== ENCOUNTER → 2020-10-12 | Outpatient (REF) | payer OTHER ==
[~2020-10-12] MED LIST changes: +ACET-683 PO; +ANAS1TAB2 PO; +BELV10TA PO; +BUPR150T4; +BUTA-198 PO; +CYCL-707 PO; +KETO10TAB PO; +LORA-753 PO; +LUPRON INJECTION; +TRAM50TA2 PO; +ZOLP5TAB PO
== END ==
LOC: M LAB REF 18:09
PROVIDERS: ATTEND Internal Medicine Endocrinology, Diabetes & Metabolism
DX: E04.1 Nontoxic single thyroid nodule (principal)

== ENCOUNTER → 2021-05-20 | Outpatient (REF) | payer OTHER ==
[~2021-05-20] MED LIST changes: +BUPR150T12; -BUPR150T4; +GABA-283 PO; -GABA-845 PO
[2021-05-20 18:31] LABS: CREATININE, URINE 44.4 MG/DL; MALB URINE SIEMENS 9.6 MG/L; MAU/CREAT RATIO 21.6 MCG/MG (0.0-30.0)
== END ==
LOC: M LAB REF 16:55
PROVIDERS: ATTEND Nurse Practitioner Family
DX: E11.65 Type 2 diabetes mellitus with hyperglycemia (principal)

== ENCOUNTER → 2022-05-25 | Outpatient (CLI) | payer OTHER | LOC: M RAD 13:07 | PROVIDERS: ATTEND Physician Assistant | DX: R10.9 Unspecified abdominal pain (principal) ==

== ENCOUNTER 2024-07-04 00:56 | Emergency (ER) | payer OTHER ==
[~2024-07-04] VITALS: Ht 167.6 cm; Wt 86.4 kg
[~2024-07-04 00:56] MED LIST changes: -GABA-283 PO; +GABA-284 PO
[2024-07-04 06:02] VITALS: BP 144/52; TEMP 96.3; O2SAT 100
== END 2024-07-04 06:33 | disposition home or self-care (01) ==
LOC: M ED 00:56
DX: M79.662 Pain in left lower leg (principal); M48.061 Spinal stenosis, lumbar region without neurogenic claudication; Z88.5 Allergy status to narcotic agent; Z98.84 Bariatric surgery status; Z90.49 Acquired absence of other specified parts of digestive tract; Z87.442 Personal history of urinary calculi; Z79.899 Other long term (current) drug therapy; Z85.3 Personal history of malignant neoplasm of breast